=== PATIENT | male | born 1950 | race Caucasian/White ===

== ENCOUNTER 2018-02-02 14:54 | Emergency (ER) | payer OTHER, MEDICARE ==
[~2018-02-02] VITALS: Ht 175.3 cm; Wt 113.4 kg
--- NOTE | 2018-02-02 15:01 | NUR ---
Pt placed in bed 2
[2018-02-02 15:12] VITALS: BP_SYST 157
--- NOTE | 2018-02-02 15:24 | NUR ---
Pt presents to ER c/o headache, abdominal pain, fatigue x 1 week. Pt rates current pain scale 7/10. Pt denies any other complaint at this time. AOX4, ambulatory, no signs of acute distress, speaking full sentences, at bedside.
--- NOTE | 2018-02-02 15:27 | NUR ---
ER at bedside examining patient.
[2018-02-02] MEDS ORDERED: KETOROLAC TROMETHAMINE 30 MG VIAL IVP ONE (15:45)
--- NOTE | 2018-02-02 15:51 | NUR ---
Pt went to radiology in stable condition
[2018-02-02 15:56] LABS: BASOPHILS # (AUTO) 0.1 K/uL (0.0-0.2); BASOPHILS % (AUTO) 0.8 % (0.0-2.0); EOSINOPHILS # (AUTO) 0.3 K/uL (0.0-0.4); EOSINOPHILS % (AUTO) 4.4 % (0.0-4.0); HEMOGLOBIN 15.1 g/dL (14.0-18.0); LYMPHOCYTES # (AUTO) 1.1 K/uL (1.0-5.5); LYMPHOCYTES % (AUTO) 16.1 % (20.5-51.5); MEAN CORPUSCULAR HEMOGLOBIN 30 pg (27-31); MEAN CORPUSCULAR HGB CONC 33 % (32-36); MEAN CORPUSCULAR VOLUME 92 fL (79.0-98.0); MONOCYTES # (AUTO) 0.4 K/uL (0.0-1.0); NEUTROPHILS % (AUTO) 72.7 % (40.0-70.0); PLATELET COUNT (AUTO) 210 K/uL (130-430); RED BLOOD CELL COUNT(AUTO) 5.03 MIL/uL (4.2-6.2); RED CELL DISTRIBUTION WIDTH 12.4 % (9.0-15.0); WHITE BLOOD COUNT (AUTO) 6.9 K/uL (4.8-10.8)
--- NOTE | 2018-02-02 16:02 | NUR ---
Pt returned from radiology in stable condition
[2018-02-02 16:03] LABS: CALCIUM 9.8 mg/dL (8.4-11.0); CREATININE 1.17 mg/dL (0.55-1.30); POTASSIUM 4.1 mmol/L (3.5-5.1)
[2018-02-02 16:08] LABS: ALBUMIN 3.7 g/dL (3.4-4.8); TOTAL BILIRUBIN 0.4 mg/dL (0.0-1.0)
[2018-02-02 17:08] VITALS: BP_SYST 153
--- NOTE | 2018-02-02 17:08 | NUR ---
Patient given written and verbal discharge instructions and verbalizes understanding. ER MD discussed with patient the results and treatment provided. Patient in stable condition. ID arm band removed. IV catheter removed intact and dressing applied, no active bleeding. Rx of norco and lactulose given. Patient educated on pain management and to follow up with PMD. Pain Scale 2. Opportunity for questions provided and answered. Medication side effect fact sheet provided.
== END 2018-02-02 17:08 | disposition home or self-care (01) ==
LOC: SED 14:54
DX: K59.00 Constipation, unspecified (principal); G44.209 Tension-type headache, unspecified, not intractable; I10 Essential (primary) hypertension
CPT/HCPCS: 36415; 70450; 74021; 80053; 85025; 96374; 99285; J1885

== ENCOUNTER 2018-09-22 16:33 | Emergency (ER) | payer OTHER, MEDICARE ==
[~2018-09-22] VITALS: Ht 175.3 cm; Wt 113.4 kg
[2018-09-22 16:49] VITALS: BP_SYST 158
--- NOTE | 2018-09-22 16:56 | NUR ---
Patient is awake, alert, and oriented x4. Patient is complaining of SOB on exertion, dull chest pain, and generalized body aches starting today.
--- NOTE | 2018-09-22 16:56 | NUR ---
Patient to ER bed 1 to gown for evaluation. Side rails up. Report given to PERI Kaufman.
[2018-09-22] MEDS ORDERED: ASPIRIN 81 MG TAB.CHEW PO ONE (17:00)
--- NOTE | 2018-09-22 17:08 | NUR ---
2 unsuccessful IV attempts made. Patient did not tolerate well. Nicholas RN to attempt.
--- NOTE | 2018-09-22 17:15 | NUR ---
20 gauge IV inserted to right AC, pt tolerated well.
[2018-09-22 17:26] LABS: EOSINOPHILS # (AUTO) 0.2 K/uL (0.0-0.4); LYMPHOCYTES # (AUTO) 0.5 K/uL (1.0-5.5); MEAN CORPUSCULAR HGB CONC 35 % (32-36); MONOCYTES # (AUTO) 0.4 K/uL (0.0-1.0)
[2018-09-22 17:32] LABS: BASOPHILS % (AUTO) 0.6 % (0.0-2.0); EOSINOPHILS % (AUTO) 2.6 % (0.0-4.0); HEMATOCRIT 43.3 % (36-54); LYMPHOCYTES % (AUTO) 7.1 % (20.5-51.5); MEAN CORPUSCULAR HEMOGLOBIN 30 pg (27-31); MEAN CORPUSCULAR VOLUME 88 fL (79.0-98.0); MONOCYTES % (AUTO) 5.2 % (1.7-9.3); NEUTROPHILS # (AUTO) 6.4 K/uL (1.8-7.7); NEUTROPHILS % (AUTO) 84.5 % (40.0-70.0); PLATELET COUNT (AUTO) 156 K/uL (130-430); RED BLOOD CELL COUNT(AUTO) 4.94 MIL/uL (4.2-6.2); RED CELL DISTRIBUTION WIDTH 14.3 % (9.0-15.0); WHITE BLOOD COUNT (AUTO) 7.6 K/uL (4.8-10.8)
[2018-09-22 17:35] LABS: CALCIUM 8.6 mg/dL (8.4-11.0); CREATININE 1.39 mg/dL (0.55-1.30); POTASSIUM 3.6 mmol/L (3.5-5.1)
[2018-09-22 17:39] LABS: ALBUMIN 3.6 g/dL (3.4-4.8); TOTAL BILIRUBIN 0.6 mg/dL (0.0-1.0)
--- NOTE | 2018-09-22 18:15 | NUR ---
ER Dr. Sol at bedside examining patient.
[2018-09-22] MEDS ORDERED: MORPHINE 4 MG/ML INJ. SYRINGE IVP ONE (18:30)
[2018-09-22 18:56] VITALS: BP_SYST 132
== END 2018-09-22 18:56 | disposition home or self-care (01) ==
LOC: SED 16:33
DX: J11.1 Influenza due to unidentified influenza virus with other respiratory manifestations (principal); R51 Headache; M79.10 Myalgia, unspecified site; I10 Essential (primary) hypertension; Z90.49 Acquired absence of other specified parts of digestive tract
CPT/HCPCS: 36415; 71045; 80053; 82550; 83880; 84484; 85025; 96374; 99284; J2270